=== PATIENT | male | born 1985 | race African-American/Black ===

== ENCOUNTER 2016-10-22 12:25 | Emergency (ER) | payer SELFPAY ==
[~2016-10-22] VITALS: Ht 191.8 cm; Wt 179.6 kg
[2016-10-22 13:05] VITALS: BP 140/85
--- NOTE | 2016-10-22 15:40 | RAD ---
Left lower extremity venous Doppler ultrasound History: Left calf swelling. Comparison: None. Procedure: Color Doppler, spectral Doppler, and grayscale images are obtained with and without compression in the area of the common femoral vein, superficial femoral vein - femoral vein junction, main femoral vein (superficial femoral vein) and popliteal vein. Veins of the proximal calf are also imaged. Findings: There is normal duplex flow, color flow and compressibility of all visualized vein segments. No evidence of deep venous thrombosis is present. Medial left calf demonstrates a small nonspecific fluid collection measuring 1.3 x 1.2 x 0.5 cm, possible representing small chronic hematoma. Impression: 1. No evidence of left lower extremity deep venous thrombosis. 2. Small nonspecific fluid collection involving the medial left calf.
--- NOTE | 2016-10-22 15:55 | PHYS DOC ---
Past Medical History Past Medical History: No Pertinent History Past Surgical History: No Surgical History Alcohol Use: None Drug Use: None Adult General Chief Complaint Chief Complaint: LOWER EXT PAIN [facility] HPI Patient is a 30 year old male with no significant medical history who presents complaining of a knot on the left calf that he noted 2-1/2 weeks ago. Patient denies any trauma. Patient denies any recent long air travel or car rides. Denies any chest pain or shortness of breath. Denies any recent surgeries. Denies taking any blood thinners. Review of Systems Review of Systems Constitutional: Denies fever or chills [] Eyes: Denies change in visual acuity, redness, or eye pain [] HENT: Denies nasal congestion or sore throat [] Respiratory: Denies cough or shortness of breath [] Cardiovascular: No additional information not addressed in HPI [] GI: Denies abdominal pain, nausea, vomiting, bloody stools or diarrhea [] : Denies dysuria or hematuria [] Musculoskeletal: Denies back pain or joint pain [] Integument: knot on the left calf Neurologic: Denies headache, focal weakness or sensory changes [] Endocrine: Denies polyuria or polydipsia [] Allergies Allergies Allergies Coded Allergies Type Severity Reaction Last Updated Verified shellfish derived Allergy Severe throat swelling 10/22/16 Yes Physical Exam Physical Exam Constitutional: Well developed, well nourished, no acute distress, non-toxic appearance. [] HENT: Normocephalic, atraumatic, bilateral external ears normal, oropharynx moist, no oral exudates, nose normal. [] Eyes: PERRLA, EOMI, conjunctiva normal, no discharge. [] Neck: Normal range of motion, no tenderness, supple, no stridor. [] Cardiovascular:Heart rate regular rhythm, no murmur [] Lungs & Thorax: Bilateral breath sounds clear to auscultation [] Abdomen: Bowel sounds normal, soft, no tenderness, no masses, no pulsatile masses. [] Skin: Morbidly obese patient. A 2 x 2 centimeter mass noted on the left medial cuff suspicious for hematoma or contusion. Negative Homans sign.+2 pedal pulse. Cap refill less than 2 seconds the left lower extremity. Back: No tenderness, no CVA tenderness. [] Extremities: No tenderness, no cyanosis, no clubbing, ROM intact, no edema. [] Neurologic: Alert and oriented X 3, normal motor function, normal sensory function, no focal deficits noted. [] Psychologic: Affect normal, judgement normal, mood normal. [] Current Patient Data Vital Signs Vital Signs Date Time Temp Pulse Resp B/P Pulse Ox O2 Delivery O2 Flow Rate FiO2 10/22/16 13:05 98.1 103 20 98 Room Air 98.1 EKG EKG [] Radiology/Procedures Radiology/Procedures []PROCEDURE: VENOUS LOWER EXTREMITY LEFT Left lower extremity venous Doppler ultrasound History: Left calf swelling. Comparison: None. Procedure: Color Doppler, spectral Doppler, and grayscale images are obtained with and without compression in the area of the common femoral vein, superficial femoral vein - femoral vein junction, main femoral vein (superficial femoral vein) and popliteal vein. Veins of the proximal calf are also imaged. Findings: There is normal duplex flow, color flow and compressibility of all visualized vein segments. No evidence of deep venous thrombosis is present. Medial left calf demonstrates a small nonspecific fluid collection measuring 1.3 x 1.2 x 0.5 cm, possible representing small chronic hematoma. Impression: 1. No evidence of left lower extremity deep venous thrombosis. 2. Small nonspecific fluid collection involving the medial left calf. DICTATED and SIGNED BY: JOHNIE HADLEY MD DATE: 10/22/16 1536 CC: OMAR RONQUILLO APRN; NO PCP; NON,STAFF ~ Course & Med Decision Making Course & Med Decision Making Pertinent Labs and Imaging studies reviewed. (See chart for details) Patient is in the ED with complaints of a knot on the left calf that he noted 2- 1/2 weeks ago no injury. Venous Doppler of the left lower extremity was negative for DVT. Nonspecific fluid collection involving the left medial calf suspicious for hematoma reported on ultrasound. Patient was discharged with instructions to apply ice to the affected area, keep it elevated. Follow-up with PCP in one week. Dragon Disclaimer Dragon Disclaimer This electronic medical record was generated, in whole or in part, using a voice recognition dictation system. Departure Departure Impression: Primary Impression: Hematoma of lower limb Disposition: HOME, SELF-CARE Condition: STABLE Referrals: NO PCP (PCP) Follow-up with your primary care doctor in one week Patient Instructions: Hematoma Additional Instructions: You were seen for hematoma of the left lower extremity. Ice and elevate the extremity. Follow-up with your doctor in one week. Problem Qualifiers Primary Impression: Hematoma of lower limb Encounter type: initial encounter Laterality: left Qualified Code: S80.12XA - Contusion of left lower leg, initial encounter OMAR RONQUILLO [employer]ATION Oct 22, 2016 15:55
== END 2016-10-22 15:57 | disposition home or self-care (01) ==
LOC: ER 12:25
DX: S80.12XA Contusion of left lower leg, initial encounter (principal); Z91.013 Allergy to seafood; X58.XXXA Exposure to other specified factors, initial encounter; Y93.89 Activity, other specified; Y92.89 Other specified places as the place of occurrence of the external cause; Y99.8 Other external cause status
CPT/HCPCS: 93971; 99284

== ENCOUNTER 2017-03-11 03:20 | Emergency (ER) | payer SELFPAY ==
[~2017-03-11] VITALS: Ht 190.5 cm; Wt 181.4 kg
[2017-03-11 03:20] VITALS: BP 164/80
--- NOTE | 2017-03-11 03:29 | PHYS DOC ---
Past Medical History Past Medical History: No Pertinent History Past Surgical History: No Surgical History Alcohol Use: None Drug Use: None Adult General Chief Complaint Chief Complaint: MECHANICAL FALL HPI HPI Patient is a 31 year old -[place] male who presents with fall through some steps with injury to his right tib-fib, knee, right lateral chest. He denies any shortness of breath, nausea vomiting or abdominal pain. He complains only of pain over his right don where he has abrasions and the lateral aspect of his right side of his chest. His last tetanus shot is unknown to him. Review of Systems Review of Systems Constitutional: Denies fever or chills [] Eyes: Denies change in visual acuity, redness, or eye pain [] HENT: Denies nasal congestion or sore throat [] Respiratory: Denies cough or shortness of breath [] Cardiovascular: No additional information not addressed in HPI [] GI: Denies abdominal pain, nausea, vomiting, bloody stools or diarrhea [] : Denies dysuria or hematuria [] Musculoskeletal: Denies back pain or joint pain [] Integument: Denies rash or skin lesions [] Neurologic: Denies headache, focal weakness or sensory changes [] Endocrine: Denies polyuria or polydipsia [] Current Medications Current Medications Current Medications Medications (Trade) Dose Ordered Sig/Tarsha Start Time Stop Time Status Last Admin Dose Admin Diphtheria/ Tetanus/Acell Pertussis (Boostrix) 0.5 ml ONCE ONCE 03/11/17 04:30 03/11/17 04:31 UNV Allergies Allergies Allergies Coded Allergies Type Severity Reaction Last Updated Verified shellfish derived Allergy Severe throat swelling 10/22/16 Yes Physical Exam Physical Exam Constitutional: Well developed, well nourished, no acute distress, non-toxic appearance. [] HENT: Normocephalic, atraumatic, bilateral external ears normal, oropharynx moist, no oral exudates, nose normal. [] Eyes: PERRLA, EOMI, conjunctiva normal, no discharge. [] Neck: Normal range of motion, no tenderness, supple, no stridor. [] Cardiovascular:Heart rate regular rhythm, no murmur [] Lungs & Thorax: Bilateral breath sounds clear to auscultation, tender palpation over the right lateral ribs without any ecchymosis or crepitus noted Abdomen: Bowel sounds normal, soft, no tenderness, no masses, no pulsatile masses. [] Skin: Warm, dry, no erythema, no rash. [] Back: No tenderness, no CVA tenderness. [] Extremities: Tender palpation to the right don with abrasions to the anterior lateral aspect, mild tenderness is about the knee with out any obvious effusions or abnormalities noted, range of motion intact, anterior posterior, lateral valgus and varus stress intact, no cyanosis, no clubbing, ROM intact, no edema. [] Neurologic: Alert and oriented X 3, normal motor function, normal sensory function, no focal deficits noted. [] Psychologic: Affect normal, judgement normal, mood normal. [] Current Patient Data Vital Signs Vital Signs Date Time Temp Pulse Resp B/P (MAP) Pulse Ox O2 Delivery O2 Flow Rate FiO2 03/11/17 03:20 98.3 93 16 95 Room Air 98.3 EKG EKG [] Radiology/Procedures Radiology/Procedures View chest x-ray did not show any focal salt elevations, bony abnormality's, or pneumothorax, as interpreted by me. 4 views of the tib-fib not show any fractures, foreign bodies, soft tissue abnormalities, as interpreted by me. 3 views of the right knee does not show any fractures, bony abnormalities, foreign bodies or soft tissue abnormalities, as interpreted by me. Impressions: Abrasions of right leg, right lateral chest Course & Med Decision Making Course & Med Decision Making Pertinent Labs and Imaging studies reviewed. (See chart for details) X-rays negative, tetanus is updated. He is being discharged with Tynan. Return precautions given. He is agreeable to the plan of being discharged in stable condition at this time. Dragon Disclaimer Dragon Disclaimer This electronic medical record was generated, in whole or in part, using a voice recognition dictation system. Departure Departure Impression: Primary Impression: Contusion of right leg Disposition: 01 HOME, SELF-CARE Condition: STABLE Referrals: NO PCP (PCP) Patient Instructions: Chest Contusion, [id number], Contusion, [id number] Additional Instructions: The x-rays of your chest, knee, right leg does not show anything broken. Your tetanus shot was updated. Your being discharged home. You can take Tynan as needed for the next several days for dental pain or discomfort. Please don't drive or drink alcohol while taking Tynan as it is a narcotic pain medicine and can impair your judgment and make you sleepy. If your symptoms get worse you can return back to ER or follow-up with her primary care physician. Over the next several days your pain and discomfort should resolve. Scripts Hydrocodone/Apap 5-325 (NORCO 5-325 TABLET) 1 Each Tablet 1 TAB PO PRN Q6HRS Y for PAIN, #14 TAB 0 Refills Prov: TAMY EVANS MD 03/11/17 Problem Qualifiers Primary Impression: Contusion of right leg Encounter type: initial encounter Qualified Codes: S80.11XA - Contusion of right lower leg, initial encounter TAMY EVANS MD Mar 11, 2017 03:29
[2017-03-11] MEDS ORDERED: HYDR-971 PO (04:36)
[2017-03-11] MEDS ORDERED: DIPHTH,PERTUSS(ACELL),TET TOX 0.5 ML DISP.SYRIN. VAX IM ONE ×2 (04:43→04:45)
[2017-03-11] MEDS ORDERED: HYDROcodone/APAP 5/325MG 1 TAB TABLET PO ONE (04:45)
--- NOTE | 2017-03-11 07:11 | RAD ---
Right knee, 3 views, 03/11/2017: History: Fall, pain No fracture or dislocation is identified. There is minimal spurring at the patellofemoral articulation. No significant joint effusion is evident. IMPRESSION: No acute bony abnormality is detected. Right tibia and fibula, 2 views, 03/11/2017: No fracture is identified. Subcutaneous edema is present.
--- NOTE | 2017-03-11 07:12 | RAD ---
Chest, 2 views, 03/11/2017: History: Chest pain The heart is at the upper limits of normal in size. No pulmonary infiltrates are seen. There is no evidence of pleural fluid. IMPRESSION: No acute cardiopulmonary abnormality is detected.
== END 2017-03-11 04:57 | disposition home or self-care (01) ==
LOC: ER 03:20
DX: S80.11XA Contusion of right lower leg, initial encounter (principal); S20.311A Abrasion of right front wall of thorax, initial encounter; Z91.013 Allergy to seafood; W10.9XXA Fall (on) (from) unspecified stairs and steps, initial encounter; Y93.89 Activity, other specified; Y92.89 Other specified places as the place of occurrence of the external cause; Y99.8 Other external cause status
CPT/HCPCS: 71020; 73562; 73590; 90471; 90715; 99284-25